=== PATIENT | male | born 1965 | race Caucasian/White ===

== ENCOUNTER 2020-02-23 23:32 | Inpatient (IN) | payer OTHER ==
[~2020-02-23] VITALS: Ht 167.6 cm; Wt 69.4 kg
[2020-02-23 23:45] VITALS: Ht 167.6 cm; Wt 69.4 kg
[2020-02-24 02:17] LABS: PLATELET COUNT 292 x10^3mcL (130-400)
[2020-02-24 02:26] LABS: RED CELL DISTRIBUTION WIDTH 14.7 % (11.5-14.5)
[2020-02-24 02:29] LABS: CALCIUM 8.8 mg/dL (8.5-10.1); CARBON DIOXIDE 31.3 mmol/L (21-32); CHLORIDE SERUM 99 mmol/L (98-107); CREATININE SERUM 1.1 mg/dL (0.7-1.3); GFR1 > 60 mL/min; GLUCOSE SERUM 95 mg/dL (74-106); POTASSIUM SERUM 3.9 mmol/L (3.5-5.1); SODIUM SERUM 133 mmol/L (136-145)
[2020-02-24 02:36] LABS: ALBUMIN 2.9 g/dL (3.4-5.0); ALKALINE PHOSPHATASE 70 U/L (46-116); ALT/SGPT 42 U/L (16-63); AST/SGOT 41 U/L (15-37); BILIRUBIN TOTAL 0.48 mg/dL (0.20-1.00); TOTAL PROTEIN, SERUM 6.7 g/dL (6.4-8.2)
[2020-02-24 02:51] LABS: microscopic required? NO
[2020-02-24 02:56] LABS: urine erythrocyte NEGATIVE (NEGATIVE)
[2020-02-24 04:52] VITALS: BP 135/84
[2020-02-24 06:37] VITALS: BP 119/79
[2020-02-24 06:45] LABS: BASOPHIL % 0.4 % (0-2); PLATELET COUNT 286 x10^3mcL (130-400)
[2020-02-24 06:59] LABS: CALCIUM 8.4 mg/dL (8.5-10.1); CARBON DIOXIDE 30.5 mmol/L (21-32); CHLORIDE SERUM 97 mmol/L (98-107); GFR1 > 60 mL/min; GLUCOSE SERUM 91 mg/dL (74-106); POTASSIUM SERUM 3.5 mmol/L (3.5-5.1); SODIUM SERUM 130 mmol/L (136-145)
[2020-02-24 07:43] VITALS: BP 118/82
[2020-02-24 08:05] LABS: RED CELL DISTRIBUTION WIDTH 14.6 % (11.5-14.5)
[2020-02-24 11:13] VITALS: BP 108/65
[2020-02-24 15:21] VITALS: BP 108/64
[2020-02-24 20:15] VITALS: BP 126/78
[2020-02-25 05:13] VITALS: BP 119/77
[2020-02-25 08:10] VITALS: BP 130/75
[2020-02-25 12:08] VITALS: BP 123/81
[2020-02-25 16:26] VITALS: BP 130/85
[2020-02-25 20:55] VITALS: BP 124/78
[2020-02-26 05:42] VITALS: BP 119/75
[2020-02-26 07:23] LABS: BASOPHIL % 0.4 % (0-2); PLATELET COUNT 362 x10^3mcL (130-400); RED CELL DISTRIBUTION WIDTH 14.2 % (11.5-14.5)
[2020-02-26 07:54] VITALS: BP 121/81
[2020-02-26 08:08] LABS: CARBON DIOXIDE 28.6 mmol/L (21-32); CHLORIDE SERUM 99 mmol/L (98-107); CREATININE SERUM 0.9 mg/dL (0.7-1.3); GFR1 > 60 mL/min; GLUCOSE SERUM 87 mg/dL (74-106); MAGNESIUM 2.2 mg/dL (1.8-2.4); POTASSIUM SERUM 4.3 mmol/L (3.5-5.1); SODIUM SERUM 134 mmol/L (136-145)
[2020-02-26] MEDS ORDERED: TYL325 PO (10:30)
[2020-02-26] MEDS ORDERED: COL100 PO (10:30)
[2020-02-26 11:53] VITALS: BP 117/83
[2020-02-26 14:48] VITALS: BP 117/83
== END 2020-02-26 16:24 | DRG 383 ==
LOC: ED 23:32 → DU 02-24 01:29 → MU 02-24 01:29
PROVIDERS: Emergency Medicine; Family Medicine; ADMIT Student in an Organized Health Care Education/Training Program; ATTEND Student in an Organized Health Care Education/Training Program
DX: L02.31 Cutaneous abscess of buttock (principal); L89.311 Pressure ulcer of right buttock, stage 1; E87.1 Hypo-osmolality and hyponatremia; E44.1 Mild protein-calorie malnutrition; L03.317 Cellulitis of buttock; H91.90 Unspecified hearing loss, unspecified ear; Z68.28 Body mass index [BMI] 28.0-28.9, adult; Z20.828 Contact with and (suspected) exposure to other viral communicable diseases
CPT/HCPCS: 83880; 97116-GP; 97530-GP; G0378; J2543; J3490; J7030